=== PATIENT | male | born 1980 | race Caucasian/White ===

== ENCOUNTER 2018-05-20 12:18 | Emergency (ER) | payer OTHER ==
[~2018-05-20] VITALS: Ht 180.3 cm; Wt 99.8 kg
[2018-05-20] MEDS ORDERED: NAPROSYN500 MG PO (13:12)
[2018-05-20] MEDS ORDERED: NORFLEX100 MG PO (13:12)
[2018-05-20 14:02] VITALS: BP 158/105
== END 2018-05-20 14:03 | disposition home or self-care (01) ==
LOC: ER 12:18
DX: S16.1XXA Strain of muscle, fascia and tendon at neck level, initial encounter (principal); S29.012A Strain of muscle and tendon of back wall of thorax, initial encounter; H93.12 Tinnitus, left ear; V89.0XXA Person injured in unspecified motor-vehicle accident, nontraffic, initial encounter; Y93.89 Activity, other specified; Y92.410 Unspecified street and highway as the place of occurrence of the external cause; Y99.8 Other external cause status; F17.210 Nicotine dependence, cigarettes, uncomplicated